=== PATIENT | female | born 1945 | race Caucasian/White ===

== ENCOUNTER 2024-02-05 11:29 | Day surgery (SDC) | payer MEDICARE ==
[2024-02-05] MEDS: LACTATED RINGERS 1,000 ML IV ONE (11:49)
--- NOTE | 2024-02-05 12:08 | HISTORY & PHYSICAL EXAMINATION ---
PMH/PSH - Past Medical History Cardiovascular: positive: Hypertension, High cholesterol Respiratory: positive: None Endocrine/Autoimmune: positive: None GI: positive: Colon polyps : positive: None HEENT: positive: None Psych: positive: None Musculoskeletal: positive: None Derm: positive: None MRSA Hx?: No - Past Surgical History General: positive: Colonoscopy /[place]: positive: Mastectomy, Other Meds/Allgy - Home Medications Home Medications: Ambulatory Orders Medication Instructions Recorded Confirmed Atorvastatin [Lipitor] 20 mg ORAL DAILY 02/04/24 02/04/24 Losartan [Cozaar] 100 mg ORAL 02/04/24 - Allergies Allergies/Adverse Reactions: Allergies Allergy/AdvReac Type Severity Reaction Status Date / Time No Known Drug Allergies Allergy Verified 02/04/24 13:03 Exam - Vital Signs Vital Signs: Vital Signs x48h Temp Pulse Resp BP Pulse Ox 02/05/24 11:53 98.2 F 75 16 169/96 H 99 Impression/Plan - Problem List Problem List: History of Present Illness: I am asked to see Robyndanieltejinder 78 yof for a screening colonoscopy examination. GI symptoms: None Family history of colon cancer: No Family history of colon polyps: No Personal history of colon polyps: Yes Last colonoscopy examination: 6 years ago Anticoagulant use: N/A The Past Family, Social and Personal History has been reviewed with the patient. ROS Denies fevers, chills, night sweats, shortness of breath, chest pain, change in the color of skin or urine, diarrhea, constipation, hematemesis, hematochezia, headache, visual changes, muscle aches. PE VSS, Afeb HEENT: Pupils equil, round and reactive to light, sclera anicteric, normal hearing, oral mucous membranes moist and without lesions NECK: Supple without lymphadenopathy, thyromegaly or carotid bruits LUNGS: Clear to auscultation without wheezing HEART: NSR without murmurs CHEST: Equal and symmetric expansion, no rib pain ABD: Soft, nontender, no hepatosplenomegaly, no hernias GROIN: No hernias or lymphadenopathy EXTREMITIES: Normal neuro and muscular exam SKIN: Anicteric Assessment Request for a screening colonoscopy examination. Plan Screening colonoscopy under sedation through the Day Surgery admission protocol at [facility]. Consent: Maria Elena has been counseled for the procedure, it's indications, risks, benefits and expected outcome as well as alternative therapies. We specifically discussed risks associated with anesthesia and insertion of the endoscope into the large intestine which includes bleeding and injury to the colon which may require surgical intervention. Maria Elena understands, agrees, and consents to the proposed operative strategy and requests that we proceed with the procedure as outlined in our discussion. Jamaal Linda MD, [facility] General Surgery Service Mallampati Score Class I: The soft palate, tonsils, anterior and posterior pillars, and the en tire uvula are easily visible ASA Physical Status Classification System ASA I: A normal healthy patient Allergies: Allergies Reviewed: Done No Known Allergies Social History Reviewed: Done Medications: Meds Reviewed: Done atorvastatin 20 mg tablet (atorvastatin) Take 1 tablet by mouth once daily for cholesterol. losartan 100 mg tablet (losartan) Take 1 tablet by mouth once a day for hypertension aripiprazole 5 mg tablet (aripiprazole) Take 1 tablet by mouth every evening escitalopram oxalate 20 mg tablet (escitalopram oxalate) 1 tablet by mouth once a day for mood bupropion HCl 150 mg tablet extended release 24 hr (bupropion hcl) Take 1 tablet by mouth every morning omeprazole 40 mg capsule,delayed release(DR/EC) (omeprazole) 1 capsule by mouth once a day TO CONTROL ACID REFLUX oxybutynin chloride 10 mg tablet extended release 24hr (oxybutynin chloride) * Aspirin 81 mg Problems: Problems Reviewed: Done Colon cancer screening (ICD-V76.51) (PWE35-J29.11) GERD (gastroesophageal reflux disease) (ICD-530.81) (CAL65-O36.9) Skin lesion (ICD-709.9) (UFB40-H07.9) Hyperlipidemia (ICD-272.4) (MBY48-T13.5) Depression / anxiety (ICD-300.4) (CKQ69-Z61.8) Urinary incontinence (ICD-788.30) (KVM08-R37) Encounter for screening mammogram for malignant neoplasm of breast (ICD-V76.12) (WBK81-X65.31) Health screening (ICD-V70.0) (BVO91-G69.9) Bitten by dog, initial encounter (ICD-E906.0) (LQP77-W28.0xxA) INSOMNIA (ICD-780.52) (PVU42-M79.00) COUGH (ICD-786.2) (JES68-R17) Past Medical History: Breast cancer 1975 hypertension controlled on medication many years Rosacea controlled on medication many years negative for seasonal allergies, asthma, pneumonia regular medical checkups over the years Past Surgical History: right breast mastectomy and reconstruction 1991 UVP Risk Factors-CCC: Smoked Tobacco Use: Never smoker Smokeless Tobacco Use: Never Vaping / e-cigarette use: Never Alcohol Use: yes Type: wine Drinks per day: <1 Drug Use: no Marijuana Use: no Vital Signs: Patient Profile: 78 Years Old Female Height: 65 inches Weight: 132 pounds BMI: 22.05 Temp: 97.4 degrees F oral Pulse rate: 78 / minute Resp: 20 per minute BP sittin / 72 Pt. in pain? no Vitals Entered By: Saniya Carter RN (January 07, 2024 10:14 AM) Problems were reviewed with the patient during this visit. Medications were reviewed with the patient during this visit. Allergies were reviewed with the patient during this visit. No known allergies. Blood Pressure: Today's BP: 118/72 mmHg Patient Portal: [email or web address] <><><><><><> H&P Update: Patient examined, chart reviewed. No changes identified that would alter plan for colonoscopy. Jovani Linda MD, [facility] General Surgery Service 02/05/2024
[2024-02-05] MEDS ORDERED: PROPOFOL 500 MG/50 ML 500 MG/50 ML VIAL ONE (12:24)
--- NOTE | 2024-02-05 12:39 | ANESTHESIA ---
Pre-Anesthesia VS, & Labs - Diagnosis screening exam - Procedure colonoscopy Vital Signs: Temp Pulse Resp BP Pulse Ox O2 Flow Rate 36.8 C 75 16 169/96 H 99 02/05/24 11:53 02/05/24 11:53 02/05/24 11:53 02/05/24 11:53 02/05/24 11:53 Height: 5 ft 5.5 in Weight (kg): 59 kg Body Mass Index: 21.3 BMI Classification: Normal - NPO >8 hours - Is Patient ?: No Home Medications and Allergies Home Medications: Ambulatory Orders Atorvastatin [Lipitor] 20 mg ORAL DAILY 02/04/24 Losartan [Cozaar] 100 mg ORAL 02/04/24 Atorvastatin [Lipitor] 20 mg ORAL DAILY 02/04/24 Losartan [Cozaar] 100 mg ORAL 02/04/24 Allergies/Adverse Reactions: Allergies Allergy/AdvReac Type Severity Reaction Status Date / Time No Known Drug Allergies Allergy Verified 02/04/24 13:03 Anes History & Medical History - Medical History Cardiovascular: reports: Hypertension, High cholesterol Pulmonary: reports: None Gastrointestinal: reports: Colon polyps Urinary: reports: None Neuro: reports: TIA Musculoskeletal: reports: None Endocrine/Autoimmune: reports: None Skin: reports: None Smoking Status: Never smoker Psychosocial: reports: Alcohol (glass of wine 4x/week) History of Cancer?: Yes (breast s/p chemo) - Surgical History General: reports: Colonoscopy Gynecologic: reports: Mastectomy, Other Exam General: Alert, Oriented x3, Cooperative, No acute distress Dental: WNL Mouth Openin Fingerbreadth Neck Mobility: Normal Mallampati classification: III Thyromental Distance: 4-6 cm Mental/Cognitive Status: Alert/Oriented X3, Normal for patient Plan Anesthesia Type: General, Total IV Consent for Procedure(s) Verified and Reviewed: Yes Code Status: Attempt Resuscitation ASA classification: 2-Mild systemic disease Is this case an emergency?: No
[2024-02-05] MEDS ORDERED: GLUCAGON 1 MG/ML VIAL ONE (13:20)
[2024-02-05] MEDS: LACTATED RINGERS 300 ML IV ONE (13:45)
[2024-02-05 14:03] VITALS: BP 122/86; O2SAT 99
--- NOTE | 2024-02-05 14:37 | ANESTHESIA POST OP EVALUATION ---
Anesthesia Post Eval - Post Anesthesia Eval Vitals: Last Vital Signs Temp 36.6 C 02/05/24 13:57 Pulse 70 02/05/24 13:57 Resp 19 02/05/24 13:57 BP 122/86 H 02/05/24 13:57 Pulse Ox 99 02/05/24 13:57 O2 Flow Rate CV Function Including HR & BP: Stable Pain Control: Satisfactory Nausea & Vomiting: Negative Mental Status: Baseline Respiratory Status: Airway Patent Hydration Status: Satisfactory Anesthesia Complications: None
== END 2024-02-05 11:30 | disposition home or self-care (01) ==
LOC: SDS 11:29
PROVIDERS: ATTEND Surgery
DX: Z12.11 Encounter for screening for malignant neoplasm of colon (principal); K57.30 Diverticulosis of large intestine without perforation or abscess without bleeding; Z86.010 Personal history of colon polyps; I10 Essential (primary) hypertension
CPT/HCPCS: G0105; J1610; J7120

== ENCOUNTER 2024-02-28 11:49 | Outpatient (CLI) | payer MEDICARE ==
[2024-02-28 14:46] LABS: BASOPHILS # (AUTO) 0.1 10^3/uL (0.0-0.1); BASOPHILS % (AUTO) 1.1 %; EOSINOPHILS # (AUTO) 0.1 10^3/uL (0.0-0.7); EOSINOPHILS % (AUTO) 0.6 %; HCT - HEMATOCRIT 33.9 % (37.0-47.0); HGB - HEMOGLOBIN 10.3 g/dL (12.0-16.0); LYMPHOCYTES # (AUTO) 1.8 10^3/uL (1.5-3.5); LYMPHOCYTES % (AUTO) 21.5 %; MEAN CORPUSCULAR HEMOGLOBIN 28.1 pg (27.0-31.0); MEAN CORPUSCULAR HGB CONC 30.4 g/dL (32.0-36.0); MEAN CORPUSCULAR VOLUME 92.4 fL (81.0-99.0); MEAN PLATELET VOLUME 9.2 fL (7.9-10.8); MONOCYTES # (AUTO) 0.7 10^3/uL (0.0-1.0); MONOCYTES % (AUTO) 8.4 %; NEUTROPHILS # (AUTO) 5.6 10^3/uL (1.5-6.6); NEUTROPHILS % (AUTO) 67.9 %; PLT - PLATELET COUNT 527 10^3/uL (130-450); RED BLOOD COUNT 3.67 10^6/uL (4.20-5.40); RED CELL DISTRIBUTION WIDTH 13.1 % (12.0-15.0); RETICULOCYTE COUNT % (AUTO) 1.35 % (0.5-2.3); WHITE BLOOD COUNT 8.3 x10^3/uL (4.8-10.8)
[2024-02-28 15:27] LABS: % IRON SATURATION 17 % (20-50); ALBUMIN 3.7 g/dL (3.2-5.5); ALKALINE PHOSPHATASE 82 IU/L (42-121); ALT ALANINE AMINOTRANSFERASE 23 IU/L (10-60); AST ASPARTATE AMINOTRANSFERASE 18 IU/L (10-42); BILIRUBIN,TOTAL 0.3 mg/dL (0.2-1.0); BUN - BLOOD UREA NITROGEN 18 mg/dL (6-20); CALCIUM 10.1 mg/dL (8.5-10.3); CARBON DIOXIDE - CO2 31 mmol/L (21-32); CHLORIDE 100 mmol/L (101-111); CHOL/HDL RATIO 2.8 (<4.4); CHOLESTEROL 170 mg/dL; CREATININE 0.8 mg/dL (0.6-1.3); GFR - MDRD 69 (>89); GLUCOSE 110 mg/dL (74-104); HDL CHOLESTEROL 60 mg/dL; IRON 48 ug/dL (50-212); LDL CHOLESTEROL,CALCULATED 85 mg/dL; LDL/HDL RATIO 1.4 (<4.4); POTASSIUM 4.1 mmol/L (3.5-4.5); SODIUM 138 mmol/L (135-145); TOTAL IRON BINDING CAPACITY 284 ug/dL (250-450); TOTAL PROTEIN 7.3 g/dL (6.4-8.9); TRANSFERRIN 203 mg/dL (203-362); TRIGLYCERIDES 123 mg/dL (48-352); VLDL CHOLESTEROL 25 mg/dL
[2024-02-28 15:30] LABS: THYROID STIMULATING HORMONE 2.44 uIU/mL (0.34-5.60)
[2024-02-28 15:38] LABS: FERRITIN 209.6 ng/mL (11.0-306.8)
[2024-02-28 21:22] LABS: ESTIMATED AVERAGE GLUCOSE 131 mg/dL (70-100); HEMOGLOBIN A1c% 6.2 % (4.27-6.07)
== END 2024-02-28 11:50 | disposition home or self-care (01) ==
LOC: LAB.S 11:49
PROVIDERS: ATTEND Physician Assistant Medical
DX: R53.83 Other fatigue (principal)
CPT/HCPCS: 36415; 80053; 80061; 82607; 82728; 82746; 83036; 83540; 83721; 84443; 84466; 85025; 85045

== ENCOUNTER 2024-12-16 16:40 | Inpatient (IN) ==
[2024-12-16 17:18] LABS: BASOPHILS # (AUTO) 0.1 10^3/uL (0.0-0.1); BASOPHILS % (AUTO) 1.1 %; EOSINOPHILS # (AUTO) 0.1 10^3/uL (0.0-0.7); EOSINOPHILS % (AUTO) 1.8 %; HCT - HEMATOCRIT 38.7 % (37.0-47.0); HGB - HEMOGLOBIN 12.2 g/dL (12.0-16.0); LYMPHOCYTES # (AUTO) 1.5 10^3/uL (1.5-3.5); MEAN CORPUSCULAR HEMOGLOBIN 28.5 pg (27.0-31.0); MEAN CORPUSCULAR HGB CONC 31.5 g/dL (32.0-36.0); MEAN CORPUSCULAR VOLUME 90.4 fL (81.0-99.0); MEAN PLATELET VOLUME 8.9 fL (7.9-10.8); MONOCYTES # (AUTO) 0.4 10^3/uL (0.0-1.0); MONOCYTES % (AUTO) 6.7 %; NEUTROPHILS # (AUTO) 4.4 10^3/uL (1.5-6.6); NEUTROPHILS % (AUTO) 66.9 %; PLT - PLATELET COUNT 339 10^3/uL (130-450); RED BLOOD COUNT 4.28 10^6/uL (4.20-5.40); RED CELL DISTRIBUTION WIDTH 13.2 % (12.0-15.0); WHITE BLOOD COUNT 6.5 x10^3/uL (4.8-10.8)
[2024-12-16 17:28] LABS: MAGNESIUM 2.2 mg/dL (1.7-2.3)
--- NOTE | 2024-12-16 17:32 | ED Physician Documentation ---
History of Present Illness Stated complaint Stated Complaint: GLF/LIP/TOOTH INJURY Chief complaint Chief Complaint: General History obtained from History obtained from: Patient History of Present Illness Timing: Prior to arrival Additonal information Additional information: Patient 79-year-old female presenting to the emergency department after a fall while out walking with her friend. Patient states she was walking when she fell on the ground. She notes she felt dizzy prior to it but did not lose consciousness. She does not believe she tripped over anything. Patient notes she fell face forward and did not catch herself with her arms. She sustained laceration to her lip.She had a similar episode like this occur about 1 month ago but she did not seek further care at that time.Patient takes aspirin daily he is not on any other blood thinner and has history of TIAs in the past. She notes her symptoms do not feel similar. She has no pain in her extremities she was only able to ambulate after being assisted by 2 other people. She has pain to her jaw and face after the fall. Meds/Allgy Home Medications Ambulatory Orders Medication Instructions Recorded Confirmed acetaminophen 500 mg/15 mL oral 1,000 mg (30 mL) PO Q8H #1,800 mL 12/19/24 liquid amoxicillin 250 mg/5 mL oral 500 mg (10 mL) PO TID 7 days #210 12/19/24 suspension mL aripiprazole 1 mg/mL oral solution 5 mg (5 mL) PO QPM 30 days #150 mL 12/19/24 atorvastatin 20 mg/5 mL (4 mg/mL) 20 mg (5 mL) PO QPM #150 mL 12/19/24 oral suspension bupropion HCl 75 mg tablet 75 mg PO BID 60 days #120 tabs 12/19/24 chlorhexidine gluconate 0.12 % 15 ml buccal BID #1,893 mL 12/19/24 mouthwash escitalopram oxalate 5 mg/5 mL 20 mg (20 mL) PO DAILY 60 days 12/19/24 oral solution #1,200 mL losartan 100 mg tablet 100 mg PO DAILY #30 tabs 12/19/24 [id number] 15 ml PO DAILY 30 days #177 mL 12/19/24 oxycodone 5 mg/5 mL oral solution 5 mg (5 mL) PO Q4H PRN pain #90 mL 12/19/24 Allergies Allergies Allergy/AdvReac Type Severity Reaction Status Date / Time No Known Drug Allergies Allergy Verified 12/16/24 16:52 PFSH Active Problems All Active Problems (Updated 12/20/24 @ 23:06 by Irma Washington PA-C) Facial bone fracture (Acute) Pseudophakia of both eyes (Acute) Stress incontinence in female (Acute) Chronic pain of both shoulders (Acute) Encounter for general adult medical examination without abnormal findings (Acute) Encounter for screening mammogram for malignant neoplasm of breast (Acute) Hyperlipidemia (Acute) Fatigue (Acute) Screening for osteoporosis (Acute) Medical History Medical History (Updated 12/20/24 @ 23:06 by Irma Washington PA-C) Mandibular fracture Syncopal episodes Hypertension Depression with anxiety Breast cancer HTN (hypertension) Surgical History Surgical History (Updated 12/17/24 @ 15:23 by Arlet Pollack CRNA) H/O mastectomy Social History Social History Smoking Status: Never smoker If you are a former smoker, when did you quit? (Date/Year): never smoked Second hand tobacco smoke exposure: Yes (as a child) Do you dip or chew tobacco?: No Do you vape?: No Relationship: Level: Independent Do you feel safe in your home environment?: Yes Suffered physical, verbal, emotional, or financial abuse?: No ETOH Use: Wine Frequency: Occasional ETOH Use Details: glass of wine with dinner periodically Substance Use: denies use Exam Constitutional normal general appearance HENMT normocephalic Eyes PERRL, EOMs intact bilaterally and conjunctivae normal Neck/C-Spine visual inspection normal Lymph no lymphadenopathy noted Chest inspection of chest normal Respiratory breath sounds equal bilaterally and normal respiratory effort Cardiovascular normal heart rate noted, regular rhythm noted and no gallop Genitourinary no CVA tenderness Back/Pelvis spine normal to inspection Extremities normal to inspection Old bruise to the left leg Results Vitals Vitals: Oxygen O2 Source Room air Labs Labs: Laboratory Tests 12/16/24 17:13 WBC 6.5 RBC 4.28 Hgb 12.2 Hct 38.7 MCV 90.4 MCH 28.5 MCHC 31.5 L RDW 13.2 Plt Count 339 MPV 8.9 Neut # (Auto) 4.4 Lymph # (Auto) 1.5 [place] # (Auto) 0.4 Eos # (Auto) 0.1 Baso # (Auto) 0.1 Absolute Nucleated RBC 0.00 Nucleated RBC % 0.0 Sodium 136 Potassium 4.1 Chloride 100 L Carbon Dioxide 30 Anion Gap 6.0 BUN 21 H Creatinine 0.9 Estimated GFR (MDRD) 60 L Glucose 102 Calcium 9.6 Magnesium 2.2 Total Bilirubin 0.4 AST 20 ALT 14 Alkaline Phosphatase 70 Troponin I High Sens 9.5 Total Protein 6.5 Albumin 4.0 Globulin 2.5 Albumin/Globulin Ratio 1.6 Rads (name of study) CT head: Relevant Findings:: EMP independent interpretation of test Cervical spine: Relevant Findings:: EMP independent interpretation of test CT maxilofacial bones: Relevant Findings:: EMP independent interpretation of test Procedures Laceration (location) Face: Length in cm: 3 Wound type: Linear Neurovascular status: Sensory intact Tendon involvement: Tendon intact Anesthesia: Lidocaine 1% Wound preparation: Irrigated copiously NS Skin layer closure: Nylon, Size #-0 - enter number (5-0) and Sutures - enter # (4) Other: Patient tolerated well, No complications and Tetanus booster given Lip: Length in cm: 3 Wound type: Irregular Neurovascular status: Sensory intact, Motor intact and Vascular intact Anesthesia: Lidocaine 1% Wound preparation: Irrigated copiously NS Deep layer closure: Vicryl, size #-0 - enter number (3) and # sutures - enter number (3) Other: Patient tolerated well and Tetanus booster given PD Medical Decision Making ED course Complexity details: reviewed old records and reviewed results ED course: Patient 79-year-old female presenting to the emergency department after a fall while out walking with her friend. Patient states she was walking when she fell on the ground. She notes she felt dizzy prior to it but did not lose consciousness. She does not believe she tripped over anything. Patient notes she fell face forward and did not catch herself with her arms. She sustained laceration to her lip.She had a similar episode like this occur about 1 month ag o but she did not seek further care at that time. CT head:No acute intracranial hemorrhage. CT cervical spine: No acute, displaced fracture or traumatic subluxation. CT maxillofacial bones: Fracture of the anterior midline mandible. Fracture of the right mandibular condyle with mild displacement. Comminuted fracture of the left mandibular ramus. Question nondisplaced fracture of the right nasal bone. Given CT scan findings discussed case with Dr. Dominguez maxilofacial surgeon he recommends giving IV antibiotics for concerns of open fracture but patient will require syncope workup first. He will have patient admitted to hospitalist and will plan for surgery during her stay. Discussed case with hospitalist and PA who is agreeable with admission at this time and will workup her for her syncope as well. Patient agreeable with admission at this time. Pain under control in the ED. Sutures placed, see procedure note above. Discharge Plan Discharge Patient Disposition: ED Place in Observation Clinical Impression: Facial bone fracture Interventions: ED Admission Assessment Last Done: 12/16/24 21:30
[2024-12-16 17:34] LABS: ALBUMIN/GLOBULIN RATIO 1.6 (1.0-2.2); BILIRUBIN,TOTAL 0.4 mg/dL (0.2-1.0); CALCIUM 9.6 mg/dL (8.5-10.3); CREATININE 0.9 mg/dL (0.6-1.3); POTASSIUM 4.1 mmol/L (3.5-4.5); TOTAL PROTEIN 6.5 g/dL (6.4-8.9)
[2024-12-16 17:41] LABS: TROPONIN I HIGH SENSITIVITY 9.5 ng/L (2.3-14.8)
--- NOTE | 2024-12-16 18:16 | CT Report ---
PROCEDURE: CT Head WO INDICATIONS: fall head injury TECHNIQUE: Noncontrast 4.5 mm thick angled axial sections acquired from the foramen magnum to the vertex. For r adiation dose reduction, the following was used: automated exposure control, adjustment of mA and/or kV according to patient size. COMPARISON: None. FINDINGS: Image quality: Excellent. CSF spaces: Basal cisterns are patent. No extra-axial fluid collections. Ventricles are normal in size and shape. Brain: No midline shift. No intracranial masses or hemorrhage. No area of hypodensity in a vascula r distribution to suggest acute infarction. There is periventricular hypodensity consistent with manager economic norman microvascular ischemic disease. Age-related parenchymal loss. Skull and face: Calvarium and visualized facial bones are intact, without suspicious lesions. Sinuses: Visualized sinuses and mastoids are clear. IMPRESSION: No acute intracranial hemorrhage. Reviewed by: Isiah Santos MD on 12/16/2024 6:14 PM PST Approved by: Isiah Santos MD on 12/16/2024 6:14 PM PST Station ID: [id number]
--- NOTE | 2024-12-16 18:17 | CT Report ---
PROCEDURE: CT Cervical Spine WO INDICATIONS: neck pain TECHNIQUE: Noncontrast 3 mm thick sections acquired from the skull base to the T4 level. Sagittal and coronal r eformats were then constructed. For radiation dose reduction, the following was used: automated exp osure control, adjustment of mA and/or kV according to patient size. COMPARISON: None. FINDINGS: Image quality: Excellent. Bones: No fractures or dislocations. Visualized superior ribs are intact. Grade 1 anterolisthesis of C2 on C3, C3 on C4. Reversal of normal cervical lordosis. Mild to moderate, multilevel degenerativ e disc disease and diffuse facet arthrosis. Soft tissues: Prevertebral soft tissues are normal in thickness. No paravertebral hematomas. No ap ical pneumothoraces. IMPRESSION: No acute, displaced fracture or traumatic subluxation. Reviewed by: Fredis Pearce MD on 12/16/2024 6:16 PM PST Approved by: Fredis Pearce MD on 12/16/2024 6:16 PM PST Station ID: [id number]
[2024-12-16] MEDS ORDERED: lidocaine 1% 20 ML MDV SUBQ ONE (18:22)
--- NOTE | 2024-12-16 18:26 | CT Report ---
PROCEDURE: CT Maxillofacial WO INDICATIONS: fall, jaw pain bilateral trauma to mouth/lip TECHNIQUE: Noncontrast 1.5 mm thick axial images acquired from the mandible through the frontal sinuses, with co barbara and sagittal reformatting. For radiation dose reduction, the following was used: automated ex posure control, adjustment of mA and/or kV according to patient size. Volume rendered 3-D formats wer e performed. COMPARISON: Head CT also performed today. FINDINGS: Image quality: Good. Beam hardening artifact from dental work. Bones and teeth: Fracture of the anterior midline mandible. Fracture of the right mandibular condyle with mild displacement. Comminuted fracture of the left mandibular ramus. Question nondisplaced fracture of the right nasal bone. Orbital rosenberg are intact. Scleral bands. Sinus rosenberg show no fracture or deformity. Nasal septum is intact. Zygomatic arches are intact. Pterygoid plates are intact. Visualized portions of the skull base and auditory canals are intact. Sinuses: Paranasal sinuses are aerated, without fluid levels, mucosal thickening, or mucoceles. Mas toid air cells are aerated. Soft tissues: Densities within the lower lip. No large hematoma. No enlarged lymph nodes. No soft ti ssue lacerations or debris. Vascular: Visualized vascular structures appear normal in the absence of contrast. Bony vascular fo ramina and canals are intact. IMPRESSION: 1. Fractures of the right ventricular condyle, anterior midline mandible, and the left mandibular uriel us. 2. Small densities within the lower lip. Reviewed by: Isiah Santos MD on 12/16/2024 6:25 PM [facility] Approved by: Isiah Santos MD on 12/16/2024 6:25 PM PST Station ID: [id number]
[2024-12-16] MEDS ORDERED: ceFAZolin (2G) 2 GM in SODIUM CHLORIDE 0.9% 100ML 100 ML IV STA (18:30)
[2024-12-16] MEDS ORDERED: iohexoL-300 100 ML VIAL ONE ×2 (18:53→21:23)
[2024-12-16] MEDS: AMPICILLIN/SULBACTAM 3 GM in SODIUM CHLORIDE 0.9% MINIBAG 100 ML IV STA (19:36)
[2024-12-16] MEDS ORDERED: TETANUS/DIPHTHERIA/PERTUSSIS 0.5 ML SYRINGE IM ONE (19:48)
--- NOTE | 2024-12-16 20:53 | HISTORY & PHYSICAL EXAMINATION ---
Chief Complaint Chief Complaint Chief Complaint: syncope History of Present Illness Admitted From Admitted From:: home History Obtained From Records Reviewed: PCP note History obtained from: patient and son at bedside. History of Present Illness HPI Comment/Other: 79-year-old female who presents to the emergency department after a syncopal episode. She was out walking with her friend when they saw someone they knew and stopped to talk. Quite suddenly she became disoriented and then fell to the ground striking her face. She did not put out her hands or attempt to break her fall in any way. She does however deny syncope. She has had several episodes in the last several months of unexplained falls or dizziness. With near falls. She is not have any chest pain she is not having any dyspnea on exertion she has felt well overall. She is here tonight with her son who lives in [place]. She is and lives alone and is doing very well. She is fully independent. She has a POLST at home she states it is in her freezer her son will bring it in. She states that she is DNR/DNI and her son and daughter would be her surrogate decision makers if needed. Meds/Allgy Home Medications Ambulatory Orders Medication Instructions Recorded Confirmed atorvastatin 20 mg tablet 20 mg ORAL DAILY 02/04/24 09/09/24 aripiprazole 5 mg tablet 5 mg PO QPM 09/09/24 09/09/24 bupropion HCl 150 mg 24 hr tablet, 150 mg PO QDAY 09/09/24 09/09/24 extended release (Wellbutrin XL) escitalopram oxalate 20 mg tablet 20 mg PO QDAY 09/09/24 09/09/24 losartan 100 mg tablet 100 mg PO QDAY 09/09/24 09/09/24 Allergies Allergies Allergy/AdvReac Type Severity Reaction Status Date / Time No Known Drug Allergies Allergy Verified 12/16/24 16:52 [facility] Active Problems All Active Problems (Updated 12/16/24 @ 21:02 by HAYLEE García) Mandibular fracture (Acute) Syncopal episodes (Acute) Pseudophakia of both eyes (Acute) Stress incontinence in female (Acute) Chronic pain of both shoulders (Acute) Encounter for general adult medical examination without abnormal findings (Acute) Encounter for screening mammogram for malignant neoplasm of breast (Acute) Hypertension (Acute) Hyperlipidemia (Acute) Fatigue (Acute) Depression with anxiety (Acute) Screening for osteoporosis (Acute) Medical History Medical History (Updated 12/16/24 @ 21:02 by HAYLEE García) HTN (hypertension) Social History Social History Smoking Status: Never smoker If you are a former smoker, when did you quit? (Date/Year): never smoked Second hand tobacco smoke exposure: Yes (as a child) Do you dip or chew tobacco?: No Do you vape?: No Relationship: Do you feel safe in your home environment?: Yes Suffered physical, verbal, emotional, or financial abuse?: No ETOH Use: Wine Frequency: Occasional ETOH Use Details: glass of wine with dinner periodically Substance Use: denies use POLST Patient has POLST: Yes POLST Status: DNR Review of Systems Status of ROS: 10 or more systems reviewed and unremarkable except as noted in history and below Constitutional Denies: Fatigue, Malaise or Weakness Eyes Denies: Vision loss or Change in vision Ears, nose, mouth, and throat Denies: Tinnitus, Vertigo or Neck pain Cardiovascular Reports: Syncope and lightheadedness; Denies: Irregular heart rate, chest pain, palpitations, edema, shortness of breath with exertion or Decreased exercise tolerance Respiratory Denies: Shortness of breath or Cough Gastrointestinal Denies: Abdominal pain or Poor appetite Genitourinary Denies: Painful urination Musculoskeletal Denies: Neck pain Neurological Denies: Vertigo Psychiatric Denies: Depression or Anxiety Endocrine Denies: Fatigue Hematologic/Lymphatic Denies: Anemia Prior Level of Functionality: Independent. Able to meet all of her own needs. Has been a for about 6 years and is doing well. Exam Constitutional normal general appearance [facility] dentition abnormal and gingiva abnormal Deformity of the teeth with multiple broken teeth and several abrasions about the lips Eyes conjunctivae normal, alignment normal and visual acuity normal Neck/C-Spine visual inspection normal and trachea midline Lymph no lymphadenopathy noted Respiratory breath sounds equal bilaterally and normal respiratory effort Cardiovascular normal heart rate noted and regular rhythm noted Hypertensive Gastrointestinal abdomen normal to inspection and abdomen soft to palpation Back/Pelvis spine normal to inspection Extremities normal to inspection, normal to palpation, no tenderness and full ROM Neurology speech normal and GCS 15 Psychiatry mental status grossly normal, oriented x3, thought process normal and cooperative Skin skin color normal Conclusion/Plan Problem List (1) Syncopal episodes: Plan: She has had 1 unexplained fall at her daughter's house in the last several months. Then 1 episode of dizziness at a friend's house. Then this evening when she actually did fall. If there was a loss of consciousness it was quite brief. She cannot explain exactly what happened, but it is clear that she fell directly on her face and did nothing to block her fall. She will be placed on telemetry monitoring. I have ordered a CTA of the head and neck. I have ordered an MRI of the brain. I have ordered an echocardiogram. (2) Mandibular fracture: Plan: Dr. Dominguez of [facility] will see the patient in the emergency department and presumably is planning to take her for repair of her fracture tomorrow. There is no reason that this is contraindicated. I will make her n.p.o. after midnight. (3) Hypertension: Plan: She has been hypertensive this evening since her arrival in the emergency department. She states that she did take all of her medications this morning. Selected Entries Hydralazine as needed overnight to control blood pressures less than 160 12/16/24 16:40 12/16/24 20:52 Blood Pressure 173/110 H 164/104 H Qualifiers: Hypertension type: primary hypertension Qualified Code(s): I10 - Essential (primary) hypertension (4) Depression with anxiety: Plan: Stable on current medication regimen I will resume her home medications when appropriate. Plan I have spent 78 minutes in the care of this patient today. This includes time [id number], review and ordering of diagnostic imaging and laboratory studies and consultation with other providers.. Monitoring the patient's signs symptoms, evaluation of medication effectiveness and patient's response to treatment. Lab Results Lab results reviewed: Yes 12/16/24 17:13 12/16/24 17:13 Diagnostic Imaging Results Diagnostic Imaging Results: positive Final report reviewed Diagnostic Imaging Results Comments: Mandibular fractures Cervical spine CT negative Head CT negative EKG Results EKG Interpreted Independently: No EKG Findings: EKG is reported to me from the ED PA as being negative for any signs of arrhythmia or heart block. Images not available to me at the time I am admitting the patient
[2024-12-16] MEDS: TETANUS/DIPHTHERIA/PERTUSSIS 0.5 ML SYRINGE IM ONE (21:11)
[2024-12-16] MEDS: lidocaine 1% 20 ML MDV SUBQ ONE (21:13)
[2024-12-16] MEDS ORDERED: ONDANSETRON 4 MG/2 ML VIAL IVP PRN (21:21)
[2024-12-16] MEDS ORDERED: SODIUM CHLORIDE FLUSH 0.9% 10 ML SYRINGE IVP PRN (21:21)
--- NOTE | 2024-12-16 22:12 | CONSULTATION NOTE ---
Referring Provider Name of Referring Provider:: Irma Washington Consult Date: 12/16/24 Chief Complaint Chief Complaint Chief Complaint: Jaw pain History of Present Illness Admitted From Admitted From:: ER History Obtained From History obtained from: Patient, Son, Records Exam Limitations: Conflicting stories about the nature of her fall. History of Present Illness HPI Comment/Other: 79 yoF s/p GLF. She reports it was mechanical but she has had multiple syncopal fall recently and her son reports that this was also a syncopal fall, preceded by a brief episode of confusion. Her face struck the road. She did not guard. She was brought to the ER via ambulance. She complains of jaw pain, chipped teeth, and malocclusion. Denies neck pain, difficulty swallowing, difficulty breathing, chest pain, racing pulse, dizziness, recent illness, vision changes, epistaxis. PFSH Active Problems All Active Problems (Updated 12/16/24 @ 21:02 by HAYLEE García) Mandibular fracture (Acute) Syncopal episodes (Acute) Pseudophakia of both eyes (Acute) Stress incontinence in female (Acute) Chronic pain of both shoulders (Acute) Encounter for general adult medical examination without abnormal findings (Acute) Encounter for screening mammogram for malignant neoplasm of breast (Acute) Hypertension (Acute) Hyperlipidemia (Acute) Fatigue (Acute) Depression with anxiety (Acute) Screening for osteoporosis (Acute) Medical History Medical History (Updated 12/16/24 @ 21:02 by HAYLEE García) HTN (hypertension) Social History Social History Smoking Status: Never smoker If you are a former smoker, when did you quit? (Date/Year): never smoked Second hand tobacco smoke exposure: Yes (as a child) Do you dip or chew tobacco?: No Do you vape?: No Relationship: Do you feel safe in your home environment?: Yes Suffered physical, verbal, emotional, or financial abuse?: No ETOH Use: Wine Frequency: Occasional ETOH Use Details: glass of wine with dinner periodically Substance Use: denies use POLST Patient has POLST: Yes POLST Status: DNR Meds/Allgy Home Medications Ambulatory Orders Medication Instructions Recorded Confirmed atorvastatin 20 mg tablet 20 mg ORAL DAILY 02/04/24 09/09/24 aripiprazole 5 mg tablet 5 mg PO QPM 09/09/24 09/09/24 bupropion HCl 150 mg 24 hr tablet, 150 mg PO QDAY 09/09/24 09/09/24 extended release (Wellbutrin XL) escitalopram oxalate 20 mg tablet 20 mg PO QDAY 09/09/24 09/09/24 losartan 100 mg tablet 100 mg PO QDAY 09/09/24 09/09/24 Allergies Allergies Allergy/AdvReac Type Severity Reaction Status Date / Time No Known Drug Allergies Allergy Verified 12/16/24 16:52 Results Lab Results 12/16/24 17:13 12/16/24 17:13 Other Lab Results: Lab Results x24hrs 12/16/24 Range/Units 17:13 WBC 6.5 (4.8-10.8) x10^3/uL RBC 4.28 (4.20-5.40) 10^6/uL Hgb 12.2 (12.0-16.0) g/dL Hct 38.7 (37.0-47.0) % MCV 90.4 (81.0-99.0) fL MCH 28.5 (27.0-31.0) pg MCHC 31.5 L (32.0-36.0) g/dL RDW 13.2 (12.0-15.0) % Plt Count 339 (130-450) 10^3/uL MPV 8.9 (7.9-10.8) fL Neut # (Auto) 4.4 (1.5-6.6) 10^3/uL Lymph # (Auto) 1.5 (1.5-3.5) 10^3/uL [place] # (Auto) 0.4 (0.0-1.0) 10^3/uL Eos # (Auto) 0.1 (0.0-0.7) 10^3/uL Baso # (Auto) 0.1 (0.0-0.1) 10^3/uL Absolute Nucleated RBC 0.00 x10^3/uL Nucleated RBC % 0.0 /100WBC Sodium 136 (135-145) mmol/L Potassium 4.1 (3.5-4.5) mmol/L Chloride 100 L (101-111) mmol/L Carbon Dioxide 30 (21-32) mmol/L Anion Gap 6.0 (6-13) BUN 21 H (6-20) mg/dL Creatinine 0.9 (0.6-1.3) mg/dL Estimated GFR (MDRD) 60 L (>89) Glucose 102 (74-104) mg/dL Calcium 9.6 (8.5-10.3) mg/dL Magnesium 2.2 (1.7-2.3) mg/dL Total Bilirubin 0.4 (0.2-1.0) mg/dL AST 20 (10-42) IU/L ALT 14 (10-60) IU/L Alkaline Phosphatase 70 (42-121) IU/L Troponin I High Sens 9.5 (2.3-14.8) ng/L Total Protein 6.5 (6.4-8.9) g/dL Albumin 4.0 (3.2-5.5) g/dL Globulin 2.5 (2.1-4.2) g/dL Albumin/Globulin Ratio 1.6 (1.0-2.2) Conclusion and Plan Diagnosis Diagnosis: Fracture of the bilateral mandible Plan Plan: To OR for ORIF of the mandibular symphysis via premental laceration, closed reduction of the fracture of the right subcondylar region and left ascending ramus with intermaxillary fixation, and removal of teeth as necessary. Consultation Note Consultation Note: 79 yoF s/p syncopal GLF, face vs asphalt, sustaining the following maxillofacial injuries: 1. Open fracture of the anterior mandible, coursing upward between teeth #24,25. 2. R condylar neck fracture, high, moderately displaced 3. L ascending ramus fracture, moderately displaced - this fracture can be treated with ORIF if acheivement of good intermaxillary fixation is not possible. 4. fracture of multiple maxillary teeth, likely #5,6,7,8,9,10,11, and possibly others. Tooth #9 may also be luxated. 5. 2 cm intraoral laceration of the lower lip mucosa, with debris in the wound evident on CT. Likely this represents fractured teeth. 6. laceration of the premental soft tissue, not examined because it was dressed. She will need repair of these fractures during this admission. NPO tomorrow in preparation for surgery Unasyn 3g q6h for open fractures Anticipate 6 weeks of intermaxillary fixation. - Recommend nutrition consult Elevate head of bed Chlorhexidine mouthrinse BID Thank you for including me in the care of this patient. Please call with any questions. Jesus Angelica, IVANNAS [phone] Review of Systems Status of ROS: 10 or more systems reviewed and unremarkable except as noted in history and below Exam Constitutional normal general appearance and no apparent distress HENMT normocephalic, head/scalp atraumatic, external ears normal, EACs normal, nasal mucous membranes normal and external nose normal Fracture of the anterior mandible, mobile to bimanual manipulation. Bruising of the FOM. Multiple fractured teeth on the maxilla. Lacerations of the lower lip and chin. Eyes PERRL and EOMs intact bilaterally Neck/C-Spine visual inspection normal, trachea midline and cervical spine nontender Lymph no lymphadenopathy noted Respiratory normal respiratory effort Cardiovascular normal heart rate noted and regular rhythm noted Gastrointestinal abdomen soft to palpation and nontender to palpation Extremities no tenderness and full ROM Neurology mathematician II-XII intact Skin Lacerations as noted above
[2024-12-16] MEDS: hydrALAZINE INJ 20 MG/ML VIAL IVP PRN (22:42)
[2024-12-16] MEDS: HEPARIN 5,000 UNIT/ML VIAL SUBQ SCH (22:42)
[2024-12-16] MEDS: DEXTROSE 5%-0.9% NACL 1,000 ML IV SCH (22:50)
[2024-12-16] MEDS: CHLORHEXIDINE GLUCONATE 15 ML UDC PO SCH (22:55)
[2024-12-16] MEDS: iohexoL-300 100 ML VIAL IVP ONE (23:26)
[2024-12-16] MEDS: oxyCODONE 5 MG TABLET PO PRN (23:48)
[2024-12-17] MEDS: HYDROmorphone 0.5 MG/0.5 ML SYRINGE IVP PRN (01:33)
[2024-12-17] MEDS: SODIUM CHLORIDE FLUSH 0.9% 10 ML SYRINGE IVP SCH (01:55)
--- NOTE | 2024-12-17 09:06 | PHARMACY PROGRESS NOTE ---
Best Possible Medication History Admit Date and Time: 12/16/241947 Home Medications Medication Instructions Recorded Confirmed Type atorvastatin 20 mg tablet 20 mg ORAL DAILY 02/04/24 12/17/24 History aripiprazole 5 mg tablet 5 mg PO QPM 09/09/24 12/17/24 History bupropion HCl 150 mg 24 hr tablet, 150 mg PO QDAY 09/09/24 12/17/24 History extended release (Wellbutrin XL) escitalopram oxalate 20 mg tablet 20 mg PO QDAY 09/09/24 12/17/24 History losartan 100 mg tablet 100 mg PO QDAY 09/09/24 12/17/24 History Processed by: Pharmacy (Medication Reconciliation completed by Engine Research EngineerEsteban) Medications reviewed in ED?: No Medication History completed: Yes Patient Interview: Completed [facility] Statement: As the person ultimately responsible for medication therapy, providers are able to order a medication from an existing home medication list in [facility] via the "Reconcile Routine" prior to Confirmation of that medication by landing support specialist. Such practice is discouraged except when the physician, in their clinical judgment, deems that a medical need exists for a medication without regard to previous use.
--- NOTE | 2024-12-17 09:28 | CT Report ---
PROCEDURE: CT Angio Head/Neck INDICATIONS: syncope TECHNIQUE: After the administration of intravenous contrast, 1 mm thick sections acquired from the aortic arch t hrough the [place]. 3-dimensional vvtntgx-mgfvjregy-jdifwlcdma (MIP) and/or volume renderin g reformats were acquired of the central intracranial vasculature and neck separately. For radiation dose reduction, the following was used: automated exposure control, adjustment of mA and/or kV acco rding to patient size. CONTRAST: 80ml [id number] COMPARISON: CT head from the same date. FINDINGS: Image quality: Diagnostic. HEAD CT: CSF Spaces: Basal cisterns are patent. No extra-axial fluid collections. Ventricles are normal in size and shape. Brain: No significant abnormality is seen for scanning technique. Skull and face: Calvarium and visualized facial bones appear intact, without suspicious lesions. Sinuses: Visualized sinuses and mastoids are clear. HEAD CT ANGIOGRAPHY: Anterior circulation: Intracranial internal carotid arteries are normal in size and flow. The flow within the paired anterior cerebral arteries is normal and symmetric. The flow within the middle cer ebral arteries is normal and symmetric. The anterior communicating artery is seen. No aneurysms are seen. Posterior circulation: Visualized portions of the vertebral arteries demonstrate normal caliber, and join to form a normal appearing basilar artery. Flow within the posterior cerebral arteries is norm al and symmetric. No aneurysms are seen. NECK CT ANGIOGRAPHY: Carotid system: The great vessels demonstrate a conventional anatomy as they arise from the aortic a rch. The origins of the common carotid arteries appear patent. The common carotid arteries demonstr ate normal caliber and courses. The bifurcation regions are both widely patent. The internal caroti d arteries demonstrate normal calibers and courses. Posterior circulation: The origins of the vertebral arteries both appear widely patent. The more cordero perior extracranial portions of both vertebral arteries also demonstrate normal courses and calibers. They join to form a normal appearing basilar artery. Soft tissues: Visualized neck soft tissues demonstrate no suspicious abnormalities. Bones: No suspicious bony lesions. Visualized cervical spine appears normally aligned. IMPRESSION: No significant intracranial arterial abnormality is seen. No significant abnormality is seen within the arteries of the neck. The estimate of stenosis included in the report of the imaging study was calculated using the NASCET method Reviewed by: Jack Chowdhury MD on 12/17/2024 9:27 AM PST Approved by: Jack Chowdhury MD on 12/17/2024 9:27 AM PST Station ID: [id number]
[2024-12-17] MEDS: ACETAMINOPHEN 325 MG TABLET PO PRN (12:49)
[2024-12-17] MEDS ORDERED: LIDOCAINE 1%-EPI 1:100000 20 ML MDV ONE (13:47)
[2024-12-17] MEDS ORDERED: CHLORHEXIDINE GLUCONATE 15 ML UDC PO ONE (13:47)
[2024-12-17] MEDS ORDERED: BACITRACIN ZINC OINT 1 PACKET TOP ONE (13:47)
[2024-12-17] MEDS ORDERED: EPINEPHrine 1 MG/ML AMP ONE (13:59)
[2024-12-17] MEDS ORDERED: MINERAL OIL/PETROLAT OPHTH OINT ONE (13:59)
[2024-12-17] MEDS ORDERED: OXYMETAZOLINE HCL 100 SPRAYS BOTTLE ONE ×2 (14:01→15:52)
[2024-12-17] MEDS ORDERED: LIDOCAINE-MPF 2% 5 ML VIAL ONE (14:01)
--- NOTE | 2024-12-17 15:24 | ANESTHESIA PROCEDURE NOTE ---
Pre-Anesthesia VS, & Labs Diagnosis Surgical Diagnosis:: open mandibular fracture Procedure Procedure: ORIF mandibular fracture Vitals Vital Signs: Temp Pulse Resp BP Pulse Ox 36.5 C 80 15 196/95 H 98 12/17/24 19:40 12/17/24 19:40 12/17/24 19:40 12/17/24 19:40 12/17/24 19:40 NPO NPO: >8 hours Is Patient ?: Not Applicable Lab Results Current Lab Results: Laboratory Tests 12/16/24 17:13: WBC 6.5, RBC 4.28, Hgb 12.2, Hct 38.7, MCV 90.4, MCH 28.5, MCHC 31.5 L, RDW 13.2, Plt Count 339, MPV 8.9, Neut # (Auto) 4.4, Lymph # (Auto) 1.5, [place] # (Auto) 0.4, Eos # (Auto) 0.1, Baso # (Auto) 0.1, Absolute Nucleated RBC 0.00, Nucleated RBC % 0.0, Sodium 136, Potassium 4.1, Chloride 100 L, Carbon Dioxide 30, Anion Gap 6.0, BUN 21 H, Creatinine 0.9, Estimated GFR (MDRD) 60 L, Glucose 102, Calcium 9.6, Magnesium 2.2, Total Bilirubin 0.4, AST 20, ALT 14, Alkaline Phosphatase 70, Troponin I High Sens 9.5, Total Protein 6.5, Albumin 4.0, Globulin 2.5, Albumin/Globulin Ratio 1.6 Lab results reviewed: Yes 12/16/24 17:13 12/16/24 17:13 Meds/Allgy Home Medications Ambulatory Orders Medication Instructions Recorded Confirmed atorvastatin 20 mg tablet 20 mg ORAL DAILY 02/04/24 12/17/24 aripiprazole 5 mg tablet 5 mg PO QPM 09/09/24 12/17/24 bupropion HCl 150 mg 24 hr tablet, 150 mg PO QDAY 09/09/24 12/17/24 extended release (Wellbutrin XL) escitalopram oxalate 20 mg tablet 20 mg PO QDAY 09/09/24 12/17/24 losartan 100 mg tablet 100 mg PO QDAY 09/09/24 12/17/24 Allergies Allergies Allergy/AdvReac Type Severity Reaction Status Date / Time No Known Drug Allergies Allergy Verified 12/16/24 16:52 PFSH Active Problems All Active Problems (Updated 12/17/24 @ 15:23 by Arlet Pollack CRNA) Mandibular fracture (Acute) Syncopal episodes (Acute) Pseudophakia of both eyes (Acute) Stress incontinence in female (Acute) Chronic pain of both shoulders (Acute) Encounter for general adult medical examination without abnormal findings (Acute) Encounter for screening mammogram for malignant neoplasm of breast (Acute) Hypertension (Acute) Hyperlipidemia (Acute) Fatigue (Acute) Depression with anxiety (Acute) Screening for osteoporosis (Acute) Medical History Medical History (Updated 12/17/24 @ 15:23 by Arlet Pollack CRNA) Breast cancer HTN (hypertension) Surgical History Surgical History (Updated 12/17/24 @ 15:23 by Arlet Pollack CRNA) H/O mastectomy Social History Social History Smoking Status: Never smoker If you are a former smoker, when did you quit? (Date/Year): never smoked Second hand tobacco smoke exposure: Yes (as a child) Do you dip or chew tobacco?: No Do you vape?: No Relationship: Level: Independent Do you feel safe in your home environment?: Yes Suffered physical, verbal, emotional, or financial abuse?: No ETOH Use: Wine Frequency: Occasional ETOH Use Details: glass of wine with dinner periodically Substance Use: denies use POLST Patient has POLST: Yes POLST Status: DNR (discussed with patient. She is ok with suspending DNR during surgery. ) Results Echo Results Echo Results: Report reviewed Anesthesia Exam (Expanded) Exam General: Alert, Oriented x3 and Cooperative Dental: Loose/Frag Mouth Openin Fingerbreadth (FB) (limited due to pain) Neck Mobility: Normal Mallampati classification: IV Thyromental Distance: 4-6 cm Respiratory: Lungs clear Cardiovascular: Regular rate, Normal S1 and Normal S2 Plan Plan Anesthesia Type: General (Will place defib pads prior to induction in case of arrhythmia) Consent for Procedure(s) Verified and Reviewed: Yes Code Status: Attempt Resuscitation ASA Classification ASA classification: 3-Severe systemic disease Is this case an emergency?: Yes
--- NOTE | 2024-12-17 15:39 | PROVIDER PROGRESS NOTE ---
Subjective Prog Note Date Prog Note Date: 12/17/24 Subjective Pt reports feeling: No change Current Medications Current Medications Current Medications: Current Medications Generic Name Dose Route Start Last Admin Trade Name Freq PRN Reason Stop Dose Admin Acetaminophen 1,000 mg 12/17/24 15:05 Acetaminophen 500 Mg Tablet PO TID [facility] Chlorhexidine Gluconate 15 ml 12/16/24 23:00 12/17/24 09:02 Chlorhexidine Gluconate 15 Ml Udc PO 15 ml BID [facility] Administration Heparin Sodium (Porcine) 5,000 unit 12/16/24 21:21 12/17/24 09:05 Heparin 5,000 Unit/Ml Vial SUBQ Not Given BID [facility] Hydralazine HCl 10 mg 12/16/24 21:21 12/16/24 22:42 Hydralazine Inj 20 Mg/Ml Vial IVP 10 mg Q6H PRN Administration hypertension Hydromorphone HCl 0.5 mg 12/16/24 21:21 12/17/24 01:33 Hydromorphone 0.5 Mg/0.5 Ml Syringe IVP 0.5 mg Q2H PRN Administration Pain 8 to 10 Dextrose/Sodium Chloride 1,000 mls @ 100 mls/hr 12/16/24 21:21 12/17/24 09:11 D5ns IV 100 mls/hr .Q10H [facility] Administration Ampicillin Sodium/Sulbactam 100 mls @ 200 mls/hr 12/17/24 18:00 Sodium 3 gm/ Sodium Chloride IV Q6HR [facility] Ondansetron HCl 4 mg 12/16/24 21:21 Ondansetron 4 Mg/2 Ml Vial IVP Q6HR PRN Nausea / Vomiting Oxycodone HCl 5 mg 12/16/24 21:21 12/17/24 09:02 Oxycodone 5 Mg Tablet PO 5 mg Q4HR PRN Administration Pain 5 to 7 Sodium Chloride 10 ml 12/16/24 21:21 Sodium Chloride Flush 0.9% 10 Ml Syringe IVP PRN PRN NEEDED PER PROVIDER ORDERS Sodium Chloride 10 ml 12/17/24 01:00 12/17/24 09:03 Sodium Chloride Flush 0.9% 10 Ml Syringe IVP Not Given 0100,0900,1700 [facility] Objective Vital Signs/Intake & Output Reviewed Vital Signs: Yes Vital Signs: Vital Signs x48h Temp Pulse Pulse Resp BP BP Pulse Ox 12/17/24 13:00 37.5 C 79 18 127/73 94 12/17/24 07:47 37.1 C 86 16 134/91 H 95 Intake & Output: Intake & Output 12/14/24 12/15/24 12/16/24 12/17/24 23:59 23:59 23:59 23:59 Intake Total 100 / 100 1240 / 1240 Output Total 0 / 0 Balance 100 / 100 1240 / 1240 Weight (kg) 58.5 kg Objective General Appearance: positive No acute distress and Alert Eyes Bilateral: positive Normal inspection Respiratory: positive Chest non-tender and No respiratory distress Cardiovascular: positive Regular rate & rhythm Abdomen: positive Non-tender Skin: positive Color nml Extremities: positive Non-tender Neurologic/Psychiatric: positive Oriented x3 Lab Results 12/16/24 17:13 12/16/24 17:13 Other Labs: Lab Results x24hrs 12/16/24 Range/Units 17:13 WBC 6.5 (4.8-10.8) x10^3/uL RBC 4.28 (4.20-5.40) 10^6/uL Hgb 12.2 (12.0-16.0) g/dL Hct 38.7 (37.0-47.0) % MCV 90.4 (81.0-99.0) fL MCH 28.5 (27.0-31.0) pg MCHC 31.5 L (32.0-36.0) g/dL RDW 13.2 (12.0-15.0) % Plt Count 339 (130-450) 10^3/uL MPV 8.9 (7.9-10.8) fL Neut # (Auto) 4.4 (1.5-6.6) 10^3/uL Lymph # (Auto) 1.5 (1.5-3.5) 10^3/uL [place] # (Auto) 0.4 (0.0-1.0) 10^3/uL Eos # (Auto) 0.1 (0.0-0.7) 10^3/uL Baso # (Auto) 0.1 (0.0-0.1) 10^3/uL Absolute Nucleated RBC 0.00 x10^3/uL Nucleated RBC % 0.0 /100WBC Sodium 136 (135-145) mmol/L Potassium 4.1 (3.5-4.5) mmol/L Chloride 100 L (101-111) mmol/L Carbon Dioxide 30 (21-32) mmol/L Anion Gap 6.0 (6-13) BUN 21 H (6-20) mg/dL Creatinine 0.9 (0.6-1.3) mg/dL Estimated GFR (MDRD) 60 L (>89) Glucose 102 (74-104) mg/dL Calcium 9.6 (8.5-10.3) mg/dL Magnesium 2.2 (1.7-2.3) mg/dL Total Bilirubin 0.4 (0.2-1.0) mg/dL AST 20 (10-42) IU/L ALT 14 (10-60) IU/L Alkaline Phosphatase 70 (42-121) IU/L Troponin I High Sens 9.5 (2.3-14.8) ng/L Total Protein 6.5 (6.4-8.9) g/dL Albumin 4.0 (3.2-5.5) g/dL Globulin 2.5 (2.1-4.2) g/dL Albumin/Globulin Ratio 1.6 (1.0-2.2) Assessment/Plan Problem List (1) Syncopal episodes: Impression: What she describes to me this near syncope. She reports that sometimes while she is walking it appears that her vision narrows and she becomes dizzy. She denies room spinning dizziness, more of a generalized weakness picture. MRI brain has been ordered. Echocardiogram has been performed awaiting read. No gross abnormalities on telemetry. (2) Mandibular fracture: Impression: Discussed case with OMFS today. Plan for OR this afternoon. Continuing pain management with Dilaudid 0.5 mg IV as needed, monitoring respiratory status for any sign of respiratory depression. I have added 1 g Tylenol 3 times daily scheduled. Unasyn as directed by OMFS (3) Hypertension: Impression: BP 127/73. Continue current regimen Qualifiers: Hypertension type: primary hypertension Qualified Code(s): I10 - Essential (primary) hypertension (4) Depression with anxiety: Impression: Resume home regimen after OR
[2024-12-17] MEDS ORDERED: ROCURONIUM 50 MG/5 ML VIAL ONE (15:58)
[2024-12-17] MEDS ORDERED: fentaNYL 100 MCG/2 ML VIAL ONE ×2 (15:58→17:06)
[2024-12-17] MEDS ORDERED: PROPOFOL 200 MG/20 ML VIAL IVP ONE (15:58)
[2024-12-17] MEDS: ACETAMINOPHEN 500 MG TABLET PO SCH (16:49)
[2024-12-17] MEDS ORDERED: DEXAMETHASONE 10 MG/ML VIAL ONE (17:06)
[2024-12-17] MEDS ORDERED: HYDROmorphone 1 MG/ML SYRINGE ONE (18:01)
[2024-12-17] MEDS ORDERED: LABETALOL 5 MG/1 ML 20 ML MDV ONE (18:11)
[2024-12-17] MEDS: ACETAMINOPHEN 160 MG/5 ML SUSP UDC PO SCH (18:38)
[2024-12-17] MEDS ORDERED: ONDANSETRON 4 MG/2 ML VIAL ONE (19:03)
[2024-12-17] MEDS ORDERED: hydrALAZINE INJ 20 MG/ML VIAL ONE (19:37)
[2024-12-17] MEDS ORDERED: HYDROmorphone 0.5 MG/0.5 ML SYRINGE IVP PRN (19:44)
[2024-12-17] MEDS ORDERED: ATROPINE ABBOJECT 1 MG/10 ML SYRINGE IVP PRN (19:44)
[2024-12-17] MEDS ORDERED: hydrALAZINE INJ 20 MG/ML VIAL IVP PRN (19:44)
[2024-12-17] MEDS ORDERED: fentaNYL 100 MCG/2 ML VIAL IVP PRN (19:44)
[2024-12-17] MEDS ORDERED: NALOXONE 0.4 MG/ML VIAL IVP PRN (19:44)
[2024-12-17] MEDS ORDERED: ONDANSETRON 4 MG/2 ML VIAL IVP PRN (19:44)
[2024-12-17] MEDS ORDERED: MORPHINE 2 MG/ML CARPUJECT IVP PRN (19:44)
[2024-12-17] MEDS ORDERED: LABETALOL 20 MG/4 ML SYRINGE IVP PRN (19:45)
--- NOTE | 2024-12-17 19:53 | OPERATIVE REPORT ---
Operative Report General Admit Date: 12/16/24 Procedure Data: Operation Date: 12/17/24 13:30 Proposed Procedures ORIF of mandibular symphysis fracture ORIF of left mandibular ascending ramus fracture Closed reduction of right mandibular condylar neck fracture Closure of 3 cm Full-thickness lower lip laceration involving the vermilion. Closure of 3 cm complex full-thickness laceration of the premental soft tissue Intermaxillary fixation - Jesus Dominguez DDS Actual Procedures ORIF of mandibular symphysis fracture Open reduction of left mandibular ascending ramus fracture without internal fixation Closed reduction of right mandibular condylar neck fracture Closure of 3 cm full-thickness lower lip laceration involving the vermilion with removal of debris from the wound Closure of 3 cm complex full-thickness laceration of the premental soft tissue Intermaxillary fixation - Jesus Dominguez DDS Pre-Op Diagnosis: MULTIPLE MANIDBLE FRACTURES, FACIAL LACERATIONS, FRACTURED TEETH Anesthesia Type General Case Staff Anesthesia Provider: Arlet Pollack Rep: MANGO MAZARIEGOS LAURA/BIOMET. Case Times Into Recovery: 12/17/24 19:27 Procedure Start: 12/17/24 17:06 Procedure End: 12/17/24 19:15 Time out: 12/17/24 17:02 Implants SCREW 2.0X14MM CROSS-DRIVE PLATE 1.0MM THICK 4HOLE PLATE 1.6MM THICK 4HOLE OMNIMAX MMF ARCH BAR OMNIMAX SD MMF SCREW 2.0X7.0 OMNIMAX SD SCREW 2.0X9.0 LIGATURE WIRE [id number] Pre-Op Diagnosis: Bilateral mandible fractures, fractured teeth, multiple facial lacerations Post Op Diagnosis: Bilateral mandible fractures, fractured teeth, multiple facial lacerations Procedure Note Estimated Blood Loss (ml): 50 Pathology: None Indications: This is a 79-year-old female who had a ground-level fall yesterday. Clinical and radiographic examination was consistent with mandibular symphysis fracture and bilateral subcondylar fractures with the left one being low and into the ramus. She also had multiple associated facial lacerations as well as fractured teeth. It was decided that repair of these fractures with ORIF and intermaxillary fixation as well as closure of the lacerations removal of teeth as necessary was indicated. The risks, benefits, and alternatives of this plan were discussed with the patient including pain, swelling, bleeding, infection, loss of sensation in the lower lip, need for further surgery, malocclusion, hardware failure, scarring, poor cosmesis. Adequate time was given answer all questions and informed consent was obtained. Findings: The patient was brought to the main operating room. She was transferred to the operating table and placed in the supine position. General anesthesia was induced by the anesthesia team and the airway was secured with a nasal endotracheal tube via the right naris. All pressure points were padded and checked.The arms were tucked. The eyes were protected with Tegaderms. The patient was prepped and draped in the standard sterile procedure for ORIF of facial fractures and repair of lacerations. A formal timeout was executed A throat pack was placed Local anesthesia was achieved with 8 cc of 2.1% lidocaine with 1-100,000 epinephrine. Attention was directed to the lacerations. All the sutures were removed in the lower lip and in the premental soft tissue. The lacerations were all washed out thoroughly. The premental soft tissue laceration was down to bone. The lip laceration was through and through and multiple fragments of fractured teeth were found inside. The wound was especially washed out and care was taken to not leave any fragments behind. A maxillary hybrid arch bar was placed with 4 screws. A mandibular hybrid arch bar was placed with 4 screws. Screws were not tightened until the place was until the patient was placed in intermaxillary fixation, but not with fixation with 24-gauge wires but instead with manual pressure and making sure that the fracture appeared well reduced and that the occlusion appeared well reduced. Now that she was well reduced we were able to tighten on the screws on the mandibular segment so that it would tighten up the hybrid arch bar and use it as a plate to retain the segments in this nice reduced position. Attention was directed to the premental wound. Through the wound we were able to make a subperiosteal dissection and identify the fracture. The fracture was already very well reduced. The patient was placed in intermaxillary fixation fixation with 4 24-gauge wires. A 4-hole plate was placed on the inferior border the mandible with locking screws. Another 4-hole plate was placed superior to this 1 with nonlocking screws. A bite block was placed intraorally. Attention was directed to the left mandibular ramus area. An incision was made down to bone in a standard BSS O pattern. Submitted subperiosteal dissection was performed. The fracture was identified. It was easily reduced manually. It was decided that placement of hardware on this fracture would be too difficult. An incision was made to attempt placement of hardware with a trocar but after a few failed attempts to hold in place hardware in this area it was decided that the effort in prolonging her anesthesia was not in her best interest. This wound was washed out and the fracture was nicely reduced. The wound was closed with 4-0 Vicryl suture in a running interlocking fashion. She was placed into intermaxillary fixation after suctioning out her mouth and her oropharynx. Her throat pack was removed and then she was placed in intermaxillary fixation, retained with 4 24-gauge wires. 4-0 Vicryl suture was used to close the lip laceration deep layers. The orbicularis yunior was reapproximated first. Then the mucosal portion of the laceration was closed with 4-0 Chromic Gut suture. The skin portion and vermilion portion were closed with 4-0 Prolene sutureAttention was then directed to the premental wound. It was closed with the deep layers being closed with 4- 0 Vicryl suture. The skin being closed with 4-0 Prolene suture. Attention was directed to the small trocar incision over the left parotid area. It was closed with two 4-0 Prolene sutures. The patient's face was cleansed. Tegaderms were removed from the eyes. The patient was moved back to the PACU with her nasal to endotracheal tube in place. She was extubated easily in PACU when she woke up. She was peaceful and calm when she woke up. She was left in the PACU in stable condition. Complications: None
--- NOTE | 2024-12-17 19:58 | ANESTHESIA POST OP EVALUATION ---
Anesthesia Post Eval Post Anesthesia Eval Vitals: Last Vital Signs Temp 36.2 C L 12/17/24 19:50 Pulse 78 12/17/24 19:50 Resp 14 12/17/24 19:50 BP 167/96 H 12/17/24 19:50 Pulse Ox 98 12/17/24 19:50 CV Function Including HR & BP: Additional Therapies Ordered (hypertension, improved with medicaiton) Pain Control: Satisfactory Nausea & Vomiting: Negative Mental Status: Patient Participates Respiratory Status: Airway Patent Hydration Status: Satisfactory Anesthesia Complications: None
[2024-12-17] MEDS: ACETAMINOPHEN 1,000 MG/100 ML 1,000 MG/100 ML BAG IV ONE (20:19)
[2024-12-17] MEDS: LACTATED RINGERS 1,000 ML IV SCH (20:19)
[2024-12-17] MEDS: AMPICILLIN/SULBACTAM 3 GM in SODIUM CHLORIDE 0.9% MINIBAG 100 ML IV SCH (20:20)
[2024-12-18] MEDS: ACETAMINOPHEN 1,000 MG/100 ML 1,000 MG/100 ML BAG IV ONE (10:05)
--- NOTE | 2024-12-18 12:43 | PROVIDER PROGRESS NOTE ---
Subjective Prog Note Date Prog Note Date: 12/18/24 Subjective Pt reports feeling: Improved Current Medications Current Medications Current Medications: Current Medications Generic Name Dose Route Start Last Admin Trade Name Freq PRN Reason Stop Dose Admin Acetaminophen 960 mg 12/17/24 16:20 12/18/24 05:50 Acetaminophen 160 Mg/5 Ml Susp Udc PO 960 mg TID [facility] Administration Chlorhexidine Gluconate 15 ml 12/16/24 23:00 12/18/24 08:59 Chlorhexidine Gluconate 15 Ml Udc PO Not Given BID [facility] Heparin Sodium (Porcine) 5,000 unit 12/16/24 21:21 12/18/24 08:58 Heparin 5,000 Unit/Ml Vial SUBQ 5,000 unit BID [facility] Administration Hydralazine HCl 10 mg 12/16/24 21:21 12/17/24 19:42 Hydralazine Inj 20 Mg/Ml Vial IVP 10 mg Q6H PRN Administration hypertension Hydromorphone HCl 0.5 mg 12/16/24 21:21 12/17/24 01:33 Hydromorphone 0.5 Mg/0.5 Ml Syringe IVP 0.5 mg Q2H PRN Administration Pain 8 to 10 Dextrose/Sodium Chloride 1,000 mls @ 100 mls/hr 12/16/24 21:21 12/18/24 05:50 D5ns IV Not Given .Q10H [facility] Ampicillin Sodium/Sulbactam 100 mls @ 200 mls/hr 12/17/24 18:00 12/18/24 12:23 Sodium 3 gm/ Sodium Chloride IV 200 mls/hr Q6HR [facility] Administration Ondansetron HCl 4 mg 12/16/24 21:21 Ondansetron 4 Mg/2 Ml Vial IVP Q6HR PRN Nausea / Vomiting Oxycodone HCl 5 mg 12/16/24 21:21 12/17/24 09:02 Oxycodone 5 Mg Tablet PO 5 mg Q4HR PRN Administration Pain 5 to 7 Sodium Chloride 10 ml 12/16/24 21:21 Sodium Chloride Flush 0.9% 10 Ml Syringe IVP PRN PRN NEEDED PER PROVIDER ORDERS Sodium Chloride 10 ml 12/17/24 01:00 12/18/24 10:06 Sodium Chloride Flush 0.9% 10 Ml Syringe IVP Not Given 0100,0900,1700 [facility] Objective Vital Signs/Intake & Output Reviewed Vital Signs: Yes Vital Signs: Vital Signs x48h Temp Pulse Resp BP Pulse Ox 12/18/24 09:00 37.0 C 67 14 133/75 H 97 12/18/24 05:20 37.2 C 90 16 133/82 H 94 Intake & Output: Intake & Output 12/15/24 12/16/24 12/17/24 12/18/24 23:59 23:59 23:59 23:59 Intake Total 100 / 100 4140 / 4140 1600 / 1600 Output Total 0 / 0 Balance 100 / 100 4140 / 4140 1600 / 1600 Weight (kg) 58.5 kg Objective General Appearance: positive No acute distress and Alert Eyes Bilateral: positive Normal inspection Respiratory: positive Chest non-tender and No respiratory distress Cardiovascular: positive Regular rate & rhythm Abdomen: positive Non-tender Skin: positive Color nml Extremities: positive Non-tender Neurologic/Psychiatric: positive Oriented x3 Lab Results 12/16/24 17:13 12/16/24 17:13 Other Labs: Lab Results x24hrs 12/16/24 Range/Units 17:13 WBC 6.5 (4.8-10.8) x10^3/uL RBC 4.28 (4.20-5.40) 10^6/uL Hgb 12.2 (12.0-16.0) g/dL Hct 38.7 (37.0-47.0) % MCV 90.4 (81.0-99.0) fL MCH 28.5 (27.0-31.0) pg MCHC 31.5 L (32.0-36.0) g/dL RDW 13.2 (12.0-15.0) % Plt Count 339 (130-450) 10^3/uL MPV 8.9 (7.9-10.8) fL Neut # (Auto) 4.4 (1.5-6.6) 10^3/uL Lymph # (Auto) 1.5 (1.5-3.5) 10^3/uL [place] # (Auto) 0.4 (0.0-1.0) 10^3/uL Eos # (Auto) 0.1 (0.0-0.7) 10^3/uL Baso # (Auto) 0.1 (0.0-0.1) 10^3/uL Absolute Nucleated RBC 0.00 x10^3/uL Nucleated RBC % 0.0 /100WBC Sodium 136 (135-145) mmol/L Potassium 4.1 (3.5-4.5) mmol/L Chloride 100 L (101-111) mmol/L Carbon Dioxide 30 (21-32) mmol/L Anion Gap 6.0 (6-13) BUN 21 H (6-20) mg/dL Creatinine 0.9 (0.6-1.3) mg/dL Estimated GFR (MDRD) 60 L (>89) Glucose 102 (74-104) mg/dL Calcium 9.6 (8.5-10.3) mg/dL Magnesium 2.2 (1.7-2.3) mg/dL Total Bilirubin 0.4 (0.2-1.0) mg/dL AST 20 (10-42) IU/L ALT 14 (10-60) IU/L Alkaline Phosphatase 70 (42-121) IU/L Troponin I High Sens 9.5 (2.3-14.8) ng/L Total Protein 6.5 (6.4-8.9) g/dL Albumin 4.0 (3.2-5.5) g/dL Globulin 2.5 (2.1-4.2) g/dL Albumin/Globulin Ratio 1.6 (1.0-2.2) Assessment/Plan Problem List (1) Syncopal episodes: Impression: What she describes to me this near syncope. She reports that sometimes while she is walking it appears that her vision narrows and she becomes dizzy. She denies room spinning dizziness, more of a generalized weakness picture. MRI brain has been ordered. Echocardiogram has been performed awaiting read. No gross abnormalities on telemetry. 12/18/2024: Echo shows normal LVEF at 60%, mild aortic and mitral sclerosis with normal function. MRI has been performed awaiting read. I have ordered physical therapy to evaluate her ability to ambulate and see if they can shed light on her fall. (2) Mandibular fracture: Impression: OR yesterday. OMFS recommends nutrition consult. I think this is appropriate to perform in the inpatient setting given her recent jaw fixation to promote appropriate healing. I am working with pharmacy to change all of her medications to liquid form. Continue pain management with Tylenol 3 times daily scheduled, hydromorphone 0.5 mg IV as needed, oxycodone 5 mg p.o. as needed While monitoring for oversedation (3) Hypertension: Impression: BP 133/75. Restarted home dose losartan 100 mg p.o. daily Qualifiers: Hypertension type: primary hypertension Qualified Code(s): I10 - Essential (primary) hypertension (4) Depression with anxiety: Impression: Resume home regimen
--- NOTE | 2024-12-18 12:51 | MRI Report ---
PROCEDURE: MRI Brain WO INDICATIONS: syncope TECHNIQUE: Noncontrast axial T1 spin echo, axial T2 fast spin echo, sagittal and axial FLAIR, coronal T2 fast sp in echo, axial gradient echo, axial diffusion and ADC through the brain. COMPARISON: CT head dated 12/16/2024. FINDINGS: Image quality: Excellent. CSF Spaces: Basal cisterns are patent. No extra-axial fluid collections. Ventricles are normal in size and shape. Brain: No intracranial masses or hemorrhage. Grace/white matter interface is normal. Brainstem appe ars normal. Diffusion-weighted images demonstrate no acute ischemic insult. No chronic ischemic ins ults. Age-related volume loss and mild to moderate, age-appropriate small vessel ischemic change. No rmal intravascular flow voids are present. Skull and face: Calvarium has normal marrow signal. Orbits appear normal. Sinuses: Sinuses and mastoids are clear. IMPRESSION: 1. Unremarkable study for patient age. No acute intracranial process. Mild to moderate small vessel i schemic change. Reviewed by: Jack Chowdhury MD on 12/18/2024 12:36 PM PST Approved by: Jack Chowdhury MD on 12/18/2024 12:36 PM PST Station ID: [id number]
[2024-12-18] MEDS: buPROPion XL 150 MG TABLET PO SCH (14:19)
[2024-12-18] MEDS: ESCITALOPRAM 10 MG TABLET PO SCH (14:20)
[2024-12-18] MEDS: LOSARTAN 50 MG TABLET PO SCH (14:20)
--- NOTE | 2024-12-18 15:20 | PROVIDER PROGRESS NOTE ---
Subjective General Admit Date: 12/18/24 Procedure Date: 12/17/24 Post Op Days: 1 Procedure Performed: ORIF bilateral mandible fractures, closure of facial lacerations, and IMF Other Other Information/Narrative: No events overnight. Afebrile. Accompanied by daughter. Ambulating and voiding. Taking fair PO. Minimal pain Family is requesting SNF for d/c. This is being coordinated by IM. PT eval today. Nutrition consult pending. Review of Systems Status of ROS: 10 or more systems reviewed and unremarkable except as noted in history and below Exam Constitutional normal general appearance and no apparent distress HENMT normocephalic, head/scalp atraumatic, external ears normal, EACs normal, nasal mucous membranes normal and external nose normal sutures c,d,i. No dehiscence of the wounds. No drainage. IMF tight and intact. Occlusion stable. Minimal pain. Moderate postoperative edema and ecchymosis. Eyes PERRL and EOMs intact bilaterally Respiratory normal respiratory effort Cardiovascular normal heart rate noted and regular rhythm noted Neurology digital marketing intern II-XII intact No V3 deficit. Skin Lacerations as noted above Impression/Plan Problem List (1) Syncopal episodes: (2) Mandibular fracture: Plan: POD #1 s/p ORIF mandibular symphysis, OR L mandibular subcondylar fx, closed reduction of the R mandibular condylar neck fx w/ IMF. Following a normal postoperative course. OK for d/c from OMFS standpoint I will send her liquid abx, pain medications, and mouthrinse from my office. I talked to her daughter about calling my office to make the arrangements today. I will see her for a follow up appointment in my office after she discharges. Appreciate IM assistance. Please let me know if you have any questions. Jesus Dominguez, EUGENIO [phone] (3) Hypertension: Qualifiers: Hypertension type: primary hypertension Qualified Code(s): I10 - Essential (primary) hypertension (4) Depression with anxiety:
[2024-12-18] MEDS: OXYCODONE 10 MG/0.5 ML PO PRN (16:08)
--- NOTE | 2024-12-18 16:11 | PT Plan of Care ---
PT Inpatient Plan of Care DIAGNOSIS Diagnosis: syncope c fall Diagnosis: mandibular fx's, s/p ORIF Referring Provider: José Miguel Park Patient Status: Inpatient CHIEF COMPLAINT Chief Complaint: dizzy, frequent falls Onset of Chief Complaint: [employer] MEDICAL/SURGICAL HISTORY Medical History (Updated 12/17/24 @ 15:23 by Arlet Pollack CRNA) Breast cancer HTN (hypertension) Surgical History (Updated 12/17/24 @ 15:23 by Arlet Pollack CRNA) H/O mastectomy BALANCE/FUNCTIONAL RESULTS Sitting Balance: Good Standing Balance: Fair Tinetti Composite Score (Balance + Gait): 22 Tinetti Assessment Interpretation: Moderate Fall Risk ASSESSMENT Assessment: Pt is a pleasant 79yo F referred for PT eval s/p syncopal fall resulting in mandibular fx's. Pt is POD1 s/p mandibular ORIF. Pt reports similar falls with dizziness in the past, none resulting in severe falls until this most recent fall. Pt lives alone in multistory home, indep at baseline. Pt's dtr in the room throughout eval. Upon PT eval, pt is mildly HTN with some dizziness reported. No other adverse symptoms reported and dizziness does not increase with activities, head turns, or gait training. Overall transfers with minAx1 and amb w/ FWW and minAx1. Amb to/from bathroom approx 30', gait with NBOS, minor lateral LOB during turns. benefits from mod multimodal cues for safety and sequencing. Pt is a moderate fall risk per Tinetti score of 22/28 however given frequency of falls associated with dizziness, fall risk more appropriately categorized as high risk. Pt is far below baseline and will benefit from skilled PT to reduce fall risk and progress gait training. When medically clear, PT rec dc to SNF as pt is unsafe to live in multistory home indep. GOALS Improve supine to sit to:: Modified Independent Improve sit to stand to:: Contact Guard Improve pivot transfer ability to:: Contact Guard Improve sit to supine to:: Contact Guard Improve gait ability to:: CGA Advance Assistive Device to:: Front Wheeled Walker Increase distance walked to (in feet):: 100 PLAN Frequency: 1-2x/day Duration: Until goals are met DISCHARGE RECOMMENDATIONS Discharge Location: [facility] [place] Equipment Recommended: Front wheeled walker Other Discharge Equipment: shower chair and GBs Transport Needs at Discharge: Personal vehicle
[2024-12-18] MEDS: ARIPiprazole 5 MG TABLET PO SCH (20:23)
[2024-12-19 01:55] VITALS: O2SAT 96
[2024-12-19] MEDS: ATORVASTATIN 10 MG TABLET PO SCH (09:16)
--- NOTE | 2024-12-19 12:37 | Discharge Summary ---
"Discharge Summary Admit Date: 12/16/24 Discharge Date: 12/19/24 Discharging Provider: José Miguel Park NP Primary Care Provider: Sanchez Mcgovern Code Status: Do Not Attempt Resuscitation Discharge Facility Name: [facility] DIAGNOSES Admission Diagnoses: Syncope Mandibular fracture Hypertension Anxiety with depression Discharge Diagnoses with Status of Each Condition: Syncoperesolved Mandibular fracturepostop Hypertensionchronic Anxiety with depressionchronic CONSULTS | PROCEDURES Consultations: [facility] Hospital Course: 79-year-old female who presents to the emergency department after a syncopal episode. She was out walking with her friend when they saw someone they knew and stopped to talk. Quite suddenly she became disoriented and then fell to the ground striking her face. She did not put out her hands or attempt to break her fall in any way. She does however deny syncope. She has had several episodes in the last several months of unexplained falls or dizziness. With near falls. She is not have any chest pain she is not having any dyspnea on exertion she has felt well overall. She is here tonight with her son who lives in [place]. She is and lives alone and is doing very well. She is fully independent. She has a POLST at home she states it is in her freezer her son will bring it in. She states that she is DNR/DNI and her son and daughter would be her surrogate decision makers if needed. ALLERGIES Allergies Allergy/AdvReac Type Severity Reaction Status Date / Time No Known Drug Allergies Allergy Verified 12/16/24 16:52 MEDICATIONS Ambulatory Orders Medication Instructions Recorded Confirmed acetaminophen 500 mg/15 mL oral 1,000 mg (30 mL) PO Q8H #1,800 mL 12/19/24 liquid amoxicillin 250 mg/5 mL oral 500 mg (10 mL) PO TID 7 days #210 12/19/24 suspension mL aripiprazole 1 mg/mL oral solution 5 mg (5 mL) PO QPM 30 days #150 mL 12/19/24 atorvastatin 20 mg/5 mL (4 mg/mL) 20 mg (5 mL) PO QPM #150 mL 12/19/24 oral suspension bupropion HCl 75 mg tablet 75 mg PO BID 60 days #120 tabs 12/19/24 chlorhexidine gluconate 0.12 % 15 ml buccal BID #1,893 mL 12/19/24 mouthwash escitalopram oxalate 5 mg/5 mL 20 mg (20 mL) PO DAILY 60 days 12/19/24 oral solution #1,200 mL losartan 100 mg tablet 100 mg PO DAILY #30 tabs 12/19/24 [id number]-[id number] 15 ml PO DAILY 30 days #177 mL 12/19/24 oxycodone 5 mg/5 mL oral solution 5 mg (5 mL) PO Q4H PRN pain #90 mL 12/19/24 PHYSICAL EXAM AT DISCHARGE General Appearance: positive No acute distress and Alert Eyes Bilateral: positive Normal inspection and PERRL ENT: positive Other (Facial trauma with postop changes) Respiratory: positive Chest non-tender and No respiratory distress Cardiovascular: positive Regular rate & rhythm Peripheral Pulses: positive 2+ Abdomen: positive Non-tender Skin: positive Other (Facial bruising) Extremities: positive Non-tender Neurologic/Psychiatric: positive Oriented x3 LABS 12/16/24 17:13 12/16/24 17:13 FOLLOW UP Follow Up: With PCP, OMFS TIME SPENT Time Spent in Discharge (Minutes): 35 Discharge Plan Discharge Patient Disposition: [facility] DC/Xfer Medically Cleared Date:: 12/19/24 Prescriptions: New aripiprazole 1 mg/mL solution 5 mg PO QPM 30 Days Qty: 150 2RF atorvastatin 20 mg/5 mL (4 mg/mL) suspension 20 mg PO QPM Qty: 150 2RF Rx Instructions: administer on an empty stomach, at least 1 hour before or 2 hours after food/meal(s) bupropion HCl 75 mg tablet 75 mg PO BID 60 Days Qty: 120 2RF escitalopram oxalate 5 mg/5 mL solution 20 mg PO DAILY 60 Days Qty: 1200 2RF losartan 100 mg tablet 100 mg PO DAILY Qty: 30 2RF acetaminophen 500 mg/15 mL liquid 1,000 mg PO Q8H Qty: 1800 0RF oxycodone 5 mg/5 mL solution 5 mg PO Q4H PRN (Reason: pain) Qty: 90 0RF chlorhexidine gluconate 0.12 % mouthwash 15 ml buccal BID Qty: 1893 0RF [id number] Liquid 15 ml PO DAILY 30 Days Qty: 177 0RF Rx Instructions: administer with a meal amoxicillin 250 mg/5 mL suspension for reconstitution 500 mg PO TID 7 Days Qty: 210 0RF Discontinued atorvastatin 20 MG tablet 20 mg ORAL DAILY escitalopram oxalate 20 mg tablet 20 mg PO QDAY bupropion HCl [Wellbutrin XL] 150 mg tablet extended release 24 hr 150 mg PO QDAY aripiprazole 5 mg tablet 5 mg PO QPM losartan 100 mg tablet 100 mg PO QDAY Activity Restrictions: Activity as Tolerated Print Language: Malawian Patient Instructions: Surgery Anesthesia After Stand Alone Forms: SNF Discharge, PCP List Follow-up Care: Sanchez Mcgovern LO[employer]IGGER [Primary Care Provider] -"
[2024-12-19 14:33] VITALS: BP 145/72; TEMP 98.6
== END 2024-12-19 14:45 | DRG 312 ==
LOC: ED 16:40 → MS3 16:40
PROVIDERS: ADMIT Physician Assistant Medical; ATTEND Physician Assistant Medical
DX: Z91.81 History of falling; W18.30XA Fall on same level, unspecified, initial encounter; S02.66XB Fracture of symphysis of mandible, initial encounter for open fracture; I10 Essential (primary) hypertension; S02.642A Fracture of ramus of left mandible, initial encounter for closed fracture; F41.8 Other specified anxiety disorders; S02.5XXA Fracture of tooth (traumatic), initial encounter for closed fracture; S02.611A Fracture of condylar process of right mandible, initial encounter for closed fracture; R55 Syncope and collapse; Z66 Do not resuscitate